=== PATIENT | male | born 1940 | race Caucasian/White ===

== ENCOUNTER 2018-11-13 15:33 | Outpatient (CLI) | payer OTHER, MEDICARE ==
--- NOTE | 2018-11-13 16:28 | RAD ---
LUMBAR SPINE TWO VIEWS: History: Lumbar radiculopathy. Status post-surgery 19 days ago. FINDINGS: AP and lateral views of the lumbar spine demonstrate laminectomy and posterior fusion changes at L3, L4, and L5. Midline surgical amira. Extensive disc osteophytosis. Mild retrolisthesis of L2 on L3, L3 on L4, and L4 on L5 No significant acute process. IMPRESSION: Recent laminectomy and posterior fusion changes with pedicle screw placement at L3, L4, and L5. POS: TPC
== END 2018-11-13 15:34 | disposition home or self-care (01) ==
LOC: TBSIIMAG 15:33
PROVIDERS: ATTEND Neurological Surgery
DX: M54.16 Radiculopathy, lumbar region (principal); Z98.1 Arthrodesis status
CPT/HCPCS: 72100

== ENCOUNTER 2019-01-29 13:49 | Outpatient (CLI) | payer OTHER, MEDICARE ==
--- NOTE | 2019-01-29 14:16 | RAD ---
LUMBAR SPINE 3 VIEWS: Date: 01/29/19 HISTORY: Intervertebral disc degeneration lumbar spine region. COMPARISON: 11/13/18. FINDINGS: Postop laminectomy and pedicle screws stabilizing L3, L4, and L5. No significant malalignment. Stable from prior study. IMPRESSION: Stable postoperative changes of the lower lumbar spine. POS: TPC
== END 2019-01-29 13:50 | disposition home or self-care (01) ==
LOC: TBSIIMAG 13:49
PROVIDERS: ATTEND Neurological Surgery
DX: M51.36 Other intervertebral disc degeneration, lumbar region (principal); Z98.890 Other specified postprocedural states
CPT/HCPCS: 72100

== ENCOUNTER 2019-01-31 15:06 | Emergency (ER) | payer OTHER, MEDICARE ==
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
== END 2019-01-31 17:15 | disposition home or self-care (01) ==
LOC: SCSER 15:06
DX: S39.012A Strain of muscle, fascia and tendon of lower back, initial encounter (principal); S16.1XXA Strain of muscle, fascia and tendon at neck level, initial encounter; S00.83XA Contusion of other part of head, initial encounter; S80.01XA Contusion of right knee, initial encounter; I10 Essential (primary) hypertension; Z79.891 Long term (current) use of opiate analgesic; Z79.899 Other long term (current) drug therapy; V43.52XA Car driver injured in collision with other type car in traffic accident, initial encounter
CPT/HCPCS: 70450; 72125; 72131

== ENCOUNTER 2019-03-12 12:50 | Outpatient (CLI) | payer OTHER, MEDICARE ==
--- NOTE | 2019-03-12 14:18 | RAD ---
LUMBAR SPINE THREE VIEW: 03/12/19 HISTORY: M51.36 - degenerative disc disease. COMPARISON: CT 01/31/19. FINDINGS: Similar appearance to the posterior spinal fusion hardware at L3-L5. L3 over L4 and L4 over L5 retrol isthesis is similar. Advanced degenerative disc space height loss throughout the lumbar spine. No sig nificant translation with flexion or extension. Multiple bridging anterior osteophytes. IMPRESSION: Multilevel retrolisthesis without significant translation with flexion or extension. POS: TPC
== END 2019-03-12 12:51 | disposition home or self-care (01) ==
LOC: TBSIIMAG 12:50
PROVIDERS: ATTEND Neurological Surgery
DX: M51.36 Other intervertebral disc degeneration, lumbar region (principal); M43.16 Spondylolisthesis, lumbar region
CPT/HCPCS: 72100

== ENCOUNTER 2019-05-06 08:36 | Outpatient (CLI) | payer OTHER, MEDICARE ==
--- NOTE | 2019-05-06 10:02 | CT ---
CT Abdomen Pelvis W Con History: Incontinence of feces Comparison: CT abdomen pelvis 2017 Findings: Lung bases are clear. No pericardial effusion. Prior gastric surgery. No dilated loops of large or small bowel. Similar appearance large duodenal diverticulum. Adrenal glands are unremarkable. Aortoiliac contour is nonaneurysmal. Prior posterior spinal fusion hardware L3-L5 with advanced L5/S1 degenerative disc space narrowing an d facet arthropathy. No free intraperitoneal gas or fluid. Small fat-containing periumbilical hernia. Impression: Similar appearance of the abdomen and pelvis. No acute inflammatory process.
[2019-05-06] MEDS ORDERED: Iopamidol 370 76% 100 ML VIAL ONE (16:24)
== END 2019-05-06 08:37 | disposition home or self-care (01) ==
LOC: CT 08:36
PROVIDERS: ATTEND Surgery
DX: R15.9 Full incontinence of feces (principal)
CPT/HCPCS: 74177; 82565; Q9967

== ENCOUNTER 2019-09-10 12:17 | Outpatient (CLI) | payer OTHER, MEDICARE ==
[2019-09-10 14:45] LABS: #Basophils 0.1 thou/uL (0.0-0.2); #Eosinphils 0.7 thou/uL (0.0-0.7); #Lymphocytes 2.2 thou/uL (1.20-3.40); #Monocytes 0.4 thou/uL (0.11-0.59); #Neutrophils 4.8 thou/uL (1.40-6.50); %Basophils 1.2 % (0.0-1.0); %Eosinophils 8.6 % (0.0-10.0); %Lymphocytes 27.2 % (21.0-51.0); %Monocytes 4.4 % (0.0-10.0); %Neutrophils 58.6 % (42.0-75.0); Hemoglobin 16.1 g/dL (14.0-18.0); Mean Corpuscular HGB CONC 33.1 g/dL (32.0-36.0); Mean Corpuscular Hemoglobin 31.8 pg (27.0-31.0); Mean Platelet Volume 7.5 fL (7.4-10.4); Platelet Count 186 thou/uL (130-400); RBC Distribution Width 12.9 % (11.5-14.5); Red Blood Cell (RBC) Count 5.08 mill/uL (4.70-6.10); White Blood Cell (WBC) Count 8.1 thou/uL (4.8-10.8)
[2019-09-10 15:05] LABS: ALT (SGPT) 15 U/L (8-55); AST (SGOT) 16 U/L (5-34); Albumin 4.3 g/dL (3.4-4.8); Alkaline Phosphatase 47 U/L (40-110); Anion Gap 9 mmol/L (10-20); BUN (Urea Nitrogen) 10 mg/dL (8.4-25.7); Bilirubin, Total 1.3 mg/dL (0.2-1.2); Calc. Creatinine Clearance 0 mL/min (70-130); Calcium 9.8 mg/dL (7.8-10.44); Carbon Dioxide 33 mmol/L (23-31); Chloride 104 mmol/L (98-107); Estimated GFR-MDRD 65; Globulin 2.9 g/dL (2.4-3.5); Glucose 101 mg/dL (83-110); Potassium 4.1 mmol/L (3.5-5.1); Protein, Total 7.2 g/dL (5.8-8.1); Sodium 142 mmol/L (136-145)
== END 2019-09-10 12:18 | disposition home or self-care (01) ==
LOC: LABBT 12:17
PROVIDERS: ATTEND Surgery
DX: Z01.818 Encounter for other preprocedural examination (principal); K40.90 Unilateral inguinal hernia, without obstruction or gangrene, not specified as recurrent
CPT/HCPCS: 80053; 85025; 93005; 93010

== ENCOUNTER 2019-09-12 07:27 | Day surgery (SDC) | payer OTHER, MEDICARE ==
[2019-09-10 12:22] VITALS: BMI 26.6
[2019-09-12] MEDS ORDERED: Midazolam HCl 2 mg/2 ml Vial ONE (09:00)
[2019-09-12] MEDS ORDERED: Bupivacaine 0.25% HCL 30 ML VIAL ONE (09:16)
[2019-09-12] MEDS ORDERED: EPINEPHrine 1 MG/ML AMP ONE (09:16)
[2019-09-12] MEDS ORDERED: Fentanyl 100 MCG/2 ML VIAL ONE (09:18)
[2019-09-12] MEDS ORDERED: HYDROcodone/Acetaminophen 5/325 mg Tablet ONE (11:52)
[2019-09-12] MEDS ORDERED: Dexamethasone 20 MG/5 ML VIAL ONE (14:51)
[2019-09-12] MEDS ORDERED: Ondansetron PF 4 MG/2 ML Vial ONE (14:51)
[2019-09-12] MEDS ORDERED: Lidocaine 1% PF 5 ML VIAL ONE (14:51)
[2019-09-12] MEDS ORDERED: PROPOFOL 200 MG/20 ML VIAL ONE (14:51)
--- NOTE | 2019-09-12 15:12 | OP ---
DATE OF PROCEDURE: 09/12/2019 PREOPERATIVE DIAGNOSIS: Left inguinal hernia. PROCEDURE PERFORMED: Left inguinal hernia repair with mesh. INDICATIONS: This is a 78-year-old male, who has had a painful left groin bulge, found to have a hernia. FINDINGS: A left indirect inguinal hernia. DESCRIPTION OF PROCEDURE: After informed consent was obtained, the patient was taken to the operating room, given general mask anesthesia and was placed in supine position. Abdomen was prepped and draped in usual fashion. Local anesthesia was infiltrated subcutaneously and deep. A transverse left inguinal incision was performed. Subcu was divided sharply. The fascia of the external oblique was incised in direction of its fibers through the external ring. Spermatic cord was isolated with a [place] drain. Cremasteric fibers . There was a hernia sac. This was dissected from surrounding cord structures down to the internal ring. It was reduced. Reduction was maintained utilizing a PHS hernia system. This was placed in the preperitoneal space, laid out, sutured to the pubic tubercle medially, tucked under the external oblique fascia laterally. A notch was cut out for the spermatic cord. Hemostasis was assured. The cord was placed anatomic. The external oblique fascia closed with a running 3-0 Vicryl, [place]tan was closed with interrupted 3-0 Vicryl, and the skin was closed with a running subcuticular 4-0 Rapide. Steri-Strips applied. Sterile bandage applied. The patient tolerated the procedure well, transferred to Recovery in good condition. Sponge and needle count verified correct x2. Job ID: [id number]
== END 2019-09-12 13:10 | disposition home or self-care (01) ==
LOC: SDC 07:27
PROVIDERS: ATTEND Surgery
PROC: 0YU60JZ Supplement Left Inguinal Region with Synthetic Substitute, Open Approach (ICD-10-PCS; principal; 2019-09-12)
DX: K40.90 Unilateral inguinal hernia, without obstruction or gangrene, not specified as recurrent (principal); K21.9 Gastro-esophageal reflux disease without esophagitis; I25.10 Atherosclerotic heart disease of native coronary artery without angina pectoris; E78.5 Hyperlipidemia, unspecified; N40.0 Benign prostatic hyperplasia without lower urinary tract symptoms; G89.29 Other chronic pain; M54.9 Dorsalgia, unspecified; Z85.048 Personal history of other malignant neoplasm of rectum, rectosigmoid junction, and anus; Z79.82 Long term (current) use of aspirin; Z79.891 Long term (current) use of opiate analgesic; Z79.899 Other long term (current) drug therapy; Z88.8 Allergy status to other drugs, medicaments and biological substances; Z90.49 Acquired absence of other specified parts of digestive tract; Z95.5 Presence of coronary angioplasty implant and graft; Z98.890 Other specified postprocedural states
CPT/HCPCS: C1781; J0171; J0690; J1100; J2001; J2250; J2405; J2704; J3010; S0020